=== PATIENT | male | born 1960 | race Caucasian/White ===

== ENCOUNTER 2021-11-29 00:06 | Inpatient (IN) | payer OTHER ==
[2021-11-29] VITALS (7 sets, daily range): BP systolic 101–116; BP diastolic 60–89
[~2021-11-29] VITALS: Ht 177.8 cm; Wt 81.8 kg
[2021-11-29] MEDS ORDERED: NITROGLYCERIN 50MG PREMIX 250 ML IV ONE (00:15)
[2021-11-29] MEDS ORDERED: FUROSEMIDE 100MG/10ML VIAL IVP ONE (00:15)
[2021-11-29] MEDS ORDERED: ASPIRIN 325MG EC TABLET PO ONE (00:15)
[2021-11-29] MEDS ORDERED: NITROGLYCERIN 50MG PREMIX 250 ML IV SCH (00:30)
[2021-11-29 00:35] LABS: BASOPHILS % 1.1 % (0.0-2.0); EOSINOPHILS % 3.7 % (0.0-5.0); HEMOGLOBIN. 14.2 g/dL (14.0-18.0); LYMPHOCYTES % 39.5 % (20.0-50.0); MEAN CORPUSCULAR HEMOGLOBIN 29.1 pg (28.0-32.0); MEAN CORPUSCULAR VOLUME 89.8 fL (80.0-94.0); MONOCYTES % 5.5 % (2.0-8.0); NEUTROPHILS % 50.2 % (40.0-76.0); PLATELET 380 x1000/uL (130-400); RED CELL DISTRIBUTION WIDTH 14.7 % (11.6-14.6)
[2021-11-29 00:42] LABS: CHLORIDE 109 mEq/L (98-107)
[2021-11-29] MEDS ORDERED: HEPARIN 5000 UNITS/ML VIAL IV SCH (00:45)
[2021-11-29] MEDS ORDERED: HEPARIN 25,000 UNITS PREMIX 250 ML IV PRN (00:45)
[2021-11-29] MEDS ORDERED: ONDANSETRON HCL 4MG/2ML INJ IV ONE (01:15)
[2021-11-29] MEDS ORDERED: HEPARIN 60 UNITS/KG BOLUS IV SCH (02:15)
[2021-11-29] MEDS ORDERED: HEPARIN BOLUS PRN aPTT <30 IV (02:15)
[2021-11-29 02:42] LABS: PARTIAL THROMBOPLASTIN TIME 28.4 sec (23.4-31.0)
[2021-11-29] MEDS: HEPARIN 25,000 UNITS PREMIX 250 ML IV SCH ×2 (03:04→15:04)
[2021-11-29 04:18] LABS: CLARITY URINE CLEAR (CLEAR); COLOR URINE YELLOW (YELLOW); KETONES URINE NEGATIVE (NEGATIVE); LEUKOCYTE ESTERASE URINE NEGATIVE (NEGATIVE); NITRITE URINE NEGATIVE (NEGATIVE); OCCULT BLOOD URINE NEGATIVE (NEGATIVE); PROTEIN URINE TRACE (NEGATIVE); UROBILINOGEN URINE 0.2 E.U./dL (0.2-1.0)
[2021-11-29] MEDS ORDERED: ACETAMINOPHEN 325MG TABLET PO PRN ×3 (06:45→07:30)
[2021-11-29] MEDS ORDERED: MAGNESIUM/ALUMINUM HYDROXIDE/SIMETHICONE 30ML UDC PO PRN (07:30)
[2021-11-29] MEDS ORDERED: GUAIFENESIN 200MG/10ML SUGAR FREE UDC PO PRN (07:30)
[2021-11-29] MEDS ORDERED: CLONIDINE 0.1MG TABLET PO PRN (07:30)
[2021-11-29] MEDS ORDERED: HYDROCODONE/ACETAMINOPHEN 5/325MG TABLET PO PRN (07:30)
[2021-11-29] MEDS ORDERED: ONDANSETRON HCL 4MG/2ML INJ IV PRN (07:30)
[2021-11-29] MEDS ORDERED: DEXTROSE 50% WATER 50ML SYRINGE IV PRN (07:45)
[2021-11-29] MEDS ORDERED: FUROSEMIDE 100MG/10ML VIAL IVP NR (09:00)
[2021-11-29] MEDS ORDERED: IPRATROPIUM/ALBUTEROL 0.5-3(2.5)MG/3ML NEB HHN PRN (09:15)
[2021-11-29] MEDS: INSULIN LISPRO 100 UNITS/ML SUBCUT SCH ×4 (09:30→21:00)
[2021-11-29] MEDS: BLOOD SUGAR DIAGNOSTIC STRIP TEST SCH ×4 (09:42→21:00)
[2021-11-29 09:55] LABS: BG BASE EXCESS -6.2 mmol/L (-2.0-2.0); BG CARBOXYHEMOGLOBIN 0.5 % (0.5-1.5); BG FRACTION INSPIRED OXYGEN 100; BG HCO3 ACT 19.7 mmol/L (22.0-26.0); BG METHEMOGLOBIN 0.2 % (0.0-1.5); BG OXYHEMOGLOBIN 95.3 % (94.0-97.0); BG PCO2 40.3 mmHg (35.0-45.0); BG PH 7.306 (7.350-7.450); BG PO2 90.9 mmHg (75.0-100.0); BG SAMPLE SITE LEFT RADIAL; BG TOTAL HEMOGLOBIN 14.8 g/dL (12.0-18.0); BG TOTAL RESPIRATORY RATE 39 b/min; BG VENT MODE MASK - BIPAP
[2021-11-29 11:51] LABS: HEMATOCRIT. 42.8 % (42.0-52.0); MEAN CORPUSCULAR HEMOGLOBIN 28.7 pg (28.0-32.0); MEAN CORPUSCULAR VOLUME 87.4 fL (80.0-94.0); MEAN PLATELET VOLUME 9.4 fl (7.4-10.4); PLATELET 324 x1000/uL (130-400); RED BLOOD CELL COUNT 4.89 mill/uL (4.7-6.1); RED CELL DISTRIBUTION WIDTH 14.5 % (11.6-14.6)
[2021-11-29 12:26] LABS: PHOSPHORUS 4.4 mg/dL (2.5-4.9)
[2021-11-29] MEDS: IPRATROPIUM/ALBUTEROL 0.5-3(2.5)MG/3ML NEB HHN SCH ×2 (14:02→21:09)
[2021-11-29 14:21] LABS: PLATELET ESTIMATE NORMAL
[2021-11-29] MEDS: HEPARIN BOLUS PRN aPTT 30-44 IV (14:37)
[2021-11-29] MEDS ORDERED: LISI10TA26 PO (15:21)
[2021-11-29] MEDS ORDERED: LABE100T5 PO (15:21)
[2021-11-29] MEDS ORDERED: GLIP5TAB12 PO (15:21)
[2021-11-29] MEDS ORDERED: AMLO10TA80 PO (15:21)
[2021-11-29] MEDS ORDERED: ATOR40TA70 PO (15:21)
[2021-11-29] MEDS: FUROSEMIDE 100MG/10ML VIAL IVP SCH (18:23)
[2021-11-29] MEDS: ATORVASTATIN CALCIUM 40MG TABLET PO SCH (21:34)
[2021-11-30] VITALS (13 sets, daily range): BP systolic 100–122; BP diastolic 54–74
[2021-11-30] MEDS: IPRATROPIUM/ALBUTEROL 0.5-3(2.5)MG/3ML NEB HHN SCH ×6 (00:54→19:49)
[2021-11-30 02:39] LABS: PHOSPHORUS 4.3 mg/dL (2.5-4.9)
[2021-11-30 02:42] LABS: BASOPHILS % 0.3 % (0.0-2.0); EOSINOPHILS % 0.2 % (0.0-5.0); HEMATOCRIT. 37.7 % (42.0-52.0); HEMOGLOBIN. 12.8 g/dL (14.0-18.0); LYMPHOCYTES % 9.4 % (20.0-50.0); MEAN CORPUSCULAR HEMOGLOBIN 29.2 pg (28.0-32.0); MONOCYTES % 4.2 % (2.0-8.0); NEUTROPHILS % 85.9 % (40.0-76.0); PLATELET 276 x1000/uL (130-400); RED BLOOD CELL COUNT 4.39 mill/uL (4.7-6.1); RED CELL DISTRIBUTION WIDTH 14.5 % (11.6-14.6)
[2021-11-30] MEDS: HEPARIN 25,000 UNITS PREMIX 250 ML IV SCH (04:05)
[2021-11-30] MEDS: FUROSEMIDE 100MG/10ML VIAL IVP SCH ×2 (05:19→18:00)
[2021-11-30] MEDS: BLOOD SUGAR DIAGNOSTIC STRIP TEST SCH ×4 (06:47→20:10)
[2021-11-30] MEDS: INSULIN LISPRO 100 UNITS/ML SUBCUT SCH ×4 (06:47→20:10)
[2021-11-30 07:55] LABS: BG BASE EXCESS -0.5 mmol/L (-2.0-2.0); BG CARBOXYHEMOGLOBIN 0.7 % (0.5-1.5); BG DEOXYHEMOGLOBIN 4.4 % (0.0-5.0); BG HCO3 ACT 24.1 mmol/L (22.0-26.0); BG METHEMOGLOBIN 0.1 % (0.0-1.5); BG OXYGEN SATURATION 95.6 % (92.0-98.5); BG OXYHEMOGLOBIN 94.8 % (94.0-97.0); BG PCO2 39.5 mmHg (35.0-45.0); BG PH 7.404 (7.350-7.450); BG PO2 81.1 mmHg (75.0-100.0); BG SAMPLE SITE LEFT RADIAL; BG TOTAL HEMOGLOBIN 13.2 g/dL (12.0-18.0); BG VENT MODE MASK - BIPAP
[2021-11-30] MEDS: ASPIRIN 81MG TABLET PO SCH (08:53)
[2021-11-30] MEDS ORDERED: NALOXONE HCL 0.4MG/ML VIAL IV PRN (18:30)
[2021-11-30] MEDS: ATORVASTATIN CALCIUM 40MG TABLET PO SCH (20:10)
[2021-11-30] MEDS: HEPARIN BOLUS PRN aPTT 30-44 IV (21:17)
[2021-12-01] VITALS (26 sets, daily range): BP systolic 98–128; BP diastolic 54–81
[2021-12-01] MEDS: IPRATROPIUM/ALBUTEROL 0.5-3(2.5)MG/3ML NEB HHN SCH ×6 (00:01→20:29)
[2021-12-01] MEDS: HEPARIN 25,000 UNITS PREMIX 250 ML IV SCH ×2 (02:12→17:00)
[2021-12-01 04:02] LABS: BASOPHILS % 0.5 % (0.0-2.0); EOSINOPHILS % 0.3 % (0.0-5.0); HEMATOCRIT. 36.9 % (42.0-52.0); HEMOGLOBIN. 12.6 g/dL (14.0-18.0); LYMPHOCYTES % 10.6 % (20.0-50.0); MEAN CORPUSCULAR HEMOGLOBIN 29.3 pg (28.0-32.0); MEAN CORPUSCULAR VOLUME 85.9 fL (80.0-94.0); MEAN PLATELET VOLUME 8.6 fl (7.4-10.4); MONOCYTES % 5.3 % (2.0-8.0); NEUTROPHILS % 83.3 % (40.0-76.0); PLATELET 277 x1000/uL (130-400); RED BLOOD CELL COUNT 4.29 mill/uL (4.7-6.1); RED CELL DISTRIBUTION WIDTH 14.3 % (11.6-14.6)
[2021-12-01] MEDS: FUROSEMIDE 100MG/10ML VIAL IVP SCH ×2 (04:55→20:49)
[2021-12-01] MEDS: HEPARIN BOLUS PRN aPTT 30-44 IV (04:55)
[2021-12-01] MEDS: BLOOD SUGAR DIAGNOSTIC STRIP TEST SCH ×4 (06:07→21:26)
[2021-12-01] MEDS: INSULIN LISPRO 100 UNITS/ML SUBCUT SCH ×4 (08:00→21:34)
[2021-12-01] MEDS: ASPIRIN 81MG TABLET PO SCH (09:00)
[2021-12-01] MEDS ORDERED: NICARDIPINE 100MCG/ML 10ML VIAL (CATH LAB) IV ONE (09:40)
[2021-12-01] MEDS ORDERED: NITROGLYCERIN 50MCG/ML 10ML VIAL (CATH LAB) IV ONE (09:40)
[2021-12-01] MEDS ORDERED: VERAPAMIL HCL 2.5 MG/1 ML 2ML VIAL IV ONE (10:48)
[2021-12-01] MEDS ORDERED: LIDOCAINE HCL/PF 2% 20MG/ML 5 ML/VIAL ONE (10:48)
[2021-12-01] MEDS ORDERED: IODIXANOL 320MG/ML 100 ML BOTTLE IV ONE (10:49)
[2021-12-01] MEDS ORDERED: DIPHENHYDRAMINE 50MG/ML VIAL ONE (10:49)
[2021-12-01] MEDS ORDERED: MIDAZOLAM HCL 2 MG/2 ML VIAL ONE (10:49)
[2021-12-01] MEDS ORDERED: FENTANYL CITRATE/PF 50MCG/ML 2ML VIAL ONE (10:49)
[2021-12-01] MEDS ORDERED: ATROPINE SULFATE 1MG/10ML SYR IV PRN (13:00)
[2021-12-01] MEDS ORDERED: ALPRAZOLAM 0.25 MG TABLET PO PRN (14:30)
[2021-12-01] MEDS ORDERED: ACETAMINOPHEN 325MG TABLET PO PRN ×2 (14:30)
[2021-12-01] MEDS ORDERED: NITROGLYCERIN 0.4MG TABLET SL SL PRN (14:30)
[2021-12-01 17:50] LABS: EOSINOPHILS % 0.7 % (0.0-5.0); HEMATOCRIT. 37.8 % (42.0-52.0); HEMOGLOBIN. 12.9 g/dL (14.0-18.0); LYMPHOCYTES % 10.9 % (20.0-50.0); MEAN CORPUSCULAR HEMOGLOBIN 29.9 pg (28.0-32.0); MEAN CORPUSCULAR VOLUME 87.5 fL (80.0-94.0); MEAN PLATELET VOLUME 8.6 fl (7.4-10.4); MONOCYTES % 6.3 % (2.0-8.0); NEUTROPHILS % 81.1 % (40.0-76.0); PLATELET 283 x1000/uL (130-400); RED BLOOD CELL COUNT 4.32 mill/uL (4.7-6.1); RED CELL DISTRIBUTION WIDTH 14.3 % (11.6-14.6)
[2021-12-01 18:49] LABS: CHLORIDE 101 mEq/L (98-107)
[2021-12-01 19:12] LABS: AMYLASE 54 IU/L (25-115); DIGOXIN 0.4 ng/mL (0.9-2.0)
[2021-12-01] MEDS: ATORVASTATIN CALCIUM 40MG TABLET PO SCH (20:34)
[2021-12-01] MEDS: ALLOPURINOL 300 MG TABLET PO SCH (20:34)
[2021-12-01] MEDS ORDERED: CHLORHEXIDINE GLUCONATE 4% EXTERNAL USE TOP SCH (21:00)
[2021-12-01] MEDS ORDERED: DIPHENHYDRAMINE 25MG CAPSULE PO PRN (21:00)
[2021-12-01] MEDS ORDERED: DOCUSATE SODIUM 100MG CAPSULE PO SCH (21:00)
[2021-12-01] MEDS ORDERED: ASCORBIC ACID 500 MG TABLET PO SCH (21:00)
[2021-12-01] MEDS ORDERED: BISACODYL 10MG SUPP PR PRN (21:00)
[2021-12-01] MEDS: SODIUM CHLORIDE 0.9% INJ 3ML FLUSH IVF SCH (21:46)
[2021-12-01 21:49] LABS: CLARITY URINE CLEAR (CLEAR); COLOR URINE YELLOW (YELLOW); KETONES URINE TRACE (NEGATIVE); LEUKOCYTE ESTERASE URINE NEGATIVE (NEGATIVE); NITRITE URINE NEGATIVE (NEGATIVE); OCCULT BLOOD URINE NEGATIVE (NEGATIVE); PH URINE 5.5 (4.5-8.0); PROTEIN URINE 2+ (NEGATIVE); SPECIFIC GRAVITY URINE 1.027 (1.005-1.030)
[2021-12-01] MEDS: ACETYLCYSTEINE 200MG/ML 20% VIAL 4ML PO SCH (23:27)
[2021-12-02] VITALS (49 sets, daily range): BP systolic 82–138; BP diastolic 35–90
[2021-12-02] MEDS: IPRATROPIUM/ALBUTEROL 0.5-3(2.5)MG/3ML NEB HHN SCH ×6 (00:13→20:38)
[2021-12-02] MEDS: ALLOPURINOL 300 MG TABLET PO SCH (05:30)
[2021-12-02 05:33] LABS: BASOPHILS % 0.6 % (0.0-2.0); EOSINOPHILS % 0.9 % (0.0-5.0); HEMATOCRIT. 37.5 % (42.0-52.0); HEMOGLOBIN. 12.9 g/dL (14.0-18.0); LYMPHOCYTES % 14.8 % (20.0-50.0); MEAN CORPUSCULAR HEMOGLOBIN 29.7 pg (28.0-32.0); MEAN PLATELET VOLUME 8.6 fl (7.4-10.4); MONOCYTES % 6.6 % (2.0-8.0); NEUTROPHILS % 77.1 % (40.0-76.0); PLATELET 283 x1000/uL (130-400); RED BLOOD CELL COUNT 4.36 mill/uL (4.7-6.1); RED CELL DISTRIBUTION WIDTH 13.8 % (11.6-14.6)
[2021-12-02] MEDS: SODIUM CHLORIDE 0.9% INJ 3ML FLUSH IVF SCH ×3 (06:10→21:39)
[2021-12-02] MEDS: FUROSEMIDE 100MG/10ML VIAL IVP SCH ×2 (06:17→18:19)
[2021-12-02] MEDS: BLOOD SUGAR DIAGNOSTIC STRIP TEST SCH ×4 (06:58→21:39)
[2021-12-02] MEDS: INSULIN LISPRO 100 UNITS/ML SUBCUT SCH ×4 (07:01→21:42)
[2021-12-02] MEDS: ASPIRIN 81MG TABLET PO SCH (08:34)
[2021-12-02] MEDS: KCL 20MEQ/100ML PREMIX 100 ML IV SCH ×2 (08:34→10:59)
[2021-12-02] MEDS: HEPARIN 25,000 UNITS in DEXT 5% WATER 250 ML IV SCH (08:37)
[2021-12-02] MEDS ORDERED: CHLORHEXIDINE GLUCONATE 4% EXTERNAL USE TOP SCH (09:00)
[2021-12-02] MEDS: ACETYLCYSTEINE 200MG/ML 20% VIAL 4ML PO SCH (09:14)
[2021-12-02 09:45] LABS: BG BASE EXCESS 5.1 mmol/L (-2.0-2.0); BG CARBOXYHEMOGLOBIN 0.2 % (0.5-1.5); BG DEOXYHEMOGLOBIN 6.1 % (0.0-5.0); BG HCO3 ACT 30.4 mmol/L (22.0-26.0); BG METHEMOGLOBIN 0.3 % (0.0-1.5); BG OXYGEN SATURATION 93.9 % (92.0-98.5); BG OXYHEMOGLOBIN 93.4 % (94.0-97.0); BG PH 7.428 (7.350-7.450); BG PO2 71.1 mmHg (75.0-100.0); BG SAMPLE SITE RIGHT RADIAL; BG TOTAL HEMOGLOBIN 14.1 g/dL (12.0-18.0); BG VENT MODE NASAL CANNULA
[2021-12-02] MEDS: THROAT LOZENGES-BENZOCAINE/MENTH/CETYLPYRD CL LOZENGES MM PRN (18:58)
[2021-12-02] MEDS: ATORVASTATIN CALCIUM 40MG TABLET PO SCH (21:40)
[2021-12-03] VITALS (48 sets, daily range): BP systolic 92–153; BP diastolic 48–100
[2021-12-03] MEDS: IPRATROPIUM/ALBUTEROL 0.5-3(2.5)MG/3ML NEB HHN SCH ×6 (00:16→20:26)
[2021-12-03] MEDS: HEPARIN 25,000 UNITS in DEXT 5% WATER 250 ML IV SCH ×2 (02:36→19:18)
[2021-12-03 05:50] LABS: EOSINOPHILS % 3.6 % (0.0-5.0); HEMATOCRIT. 39.2 % (42.0-52.0); HEMOGLOBIN. 13.4 g/dL (14.0-18.0); LYMPHOCYTES % 11.5 % (20.0-50.0); MEAN CORPUSCULAR HEMOGLOBIN 29.7 pg (28.0-32.0); MEAN CORPUSCULAR VOLUME 86.4 fL (80.0-94.0); MEAN PLATELET VOLUME 8.3 fl (7.4-10.4); MONOCYTES % 8.2 % (2.0-8.0); NEUTROPHILS % 75.7 % (40.0-76.0); PLATELET 325 x1000/uL (130-400); RED BLOOD CELL COUNT 4.53 mill/uL (4.7-6.1); RED CELL DISTRIBUTION WIDTH 13.9 % (11.6-14.6)
[2021-12-03] MEDS: FUROSEMIDE 100MG/10ML VIAL IVP SCH ×2 (06:05→17:53)
[2021-12-03] MEDS: SODIUM CHLORIDE 0.9% INJ 3ML FLUSH IVF SCH ×3 (06:05→22:06)
[2021-12-03 06:07] LABS: PHOSPHORUS 4.7 mg/dL (2.5-4.9)
[2021-12-03] MEDS: BLOOD SUGAR DIAGNOSTIC STRIP TEST SCH ×4 (07:50→21:00)
[2021-12-03] MEDS: ACETYLCYSTEINE 200MG/ML 20% VIAL 4ML PO SCH ×2 (08:10→20:26)
[2021-12-03] MEDS: ASPIRIN 81MG TABLET PO SCH (08:10)
[2021-12-03] MEDS: INSULIN LISPRO 100 UNITS/ML SUBCUT SCH ×4 (08:11→22:24)
[2021-12-03 11:55] LABS: CREATINE KINASE 154 IU/L (39-308)
[2021-12-03 16:56] LABS: CLARITY URINE CLEAR (CLEAR); COLOR URINE YELLOW (YELLOW); KETONES URINE NEGATIVE (NEGATIVE); LEUKOCYTE ESTERASE URINE NEGATIVE (NEGATIVE); NITRITE URINE NEGATIVE (NEGATIVE); OCCULT BLOOD URINE NEGATIVE (NEGATIVE); PROTEIN URINE TRACE (NEGATIVE); SPECIFIC GRAVITY URINE 1.013 (1.005-1.030); UROBILINOGEN URINE 0.2 E.U./dL (0.2-1.0)
[2021-12-03] MEDS ORDERED: ASCORBIC ACID 500 MG TABLET PO SCH ×2 (21:00→23:03)
[2021-12-03] MEDS ORDERED: CHLORHEXIDINE GLUCONATE 4% EXTERNAL USE TOP SCH (21:00)
[2021-12-03] MEDS: ALLOPURINOL 300 MG TABLET PO SCH (22:21)
[2021-12-03] MEDS: ATORVASTATIN CALCIUM 40MG TABLET PO SCH (22:21)
[2021-12-03] MEDS: THROAT LOZENGES-BENZOCAINE/MENTH/CETYLPYRD CL LOZENGES MM PRN (22:22)
[2021-12-04] VITALS (77 sets, daily range): BP systolic 79–193; BP diastolic 29–103
[2021-12-04] MEDS: IPRATROPIUM/ALBUTEROL 0.5-3(2.5)MG/3ML NEB HHN SCH ×6 (00:29→20:40)
[2021-12-04] MEDS ORDERED: CHLORHEXIDINE GLUCONATE 4% EXTERNAL USE TOP SCH (04:00)
[2021-12-04] MEDS: SODIUM CHLORIDE 0.9% INJ 3ML FLUSH IVF SCH ×3 (06:02→22:24)
[2021-12-04] MEDS: ALLOPURINOL 300 MG TABLET PO SCH (06:03)
[2021-12-04] MEDS: FUROSEMIDE 100MG/10ML VIAL IVP SCH ×2 (06:03→18:11)
[2021-12-04 06:31] LABS: BASOPHILS % 1.2 % (0.0-2.0); EOSINOPHILS % 5.2 % (0.0-5.0); HEMATOCRIT. 40.3 % (42.0-52.0); HEMOGLOBIN. 14.2 g/dL (14.0-18.0); LYMPHOCYTES % 21.1 % (20.0-50.0); MEAN CORPUSCULAR VOLUME 85.4 fL (80.0-94.0); MEAN PLATELET VOLUME 8.4 fl (7.4-10.4); NEUTROPHILS % 62.5 % (40.0-76.0); PLATELET 339 x1000/uL (130-400); RED BLOOD CELL COUNT 4.71 mill/uL (4.7-6.1); RED CELL DISTRIBUTION WIDTH 13.8 % (11.6-14.6)
[2021-12-04 06:37] LABS: PARTIAL THROMBOPLASTIN TIME 56.8 sec (23.4-31.0); PROTHROMBIN TIME 10.9 sec (9.6-11.0)
[2021-12-04 07:11] LABS: CHLORIDE 96 mEq/L (98-107)
[2021-12-04] MEDS: BLOOD SUGAR DIAGNOSTIC STRIP TEST SCH ×4 (07:27→21:00)
[2021-12-04] MEDS: INSULIN LISPRO 100 UNITS/ML SUBCUT SCH ×4 (07:28→21:00)
[2021-12-04] MEDS ORDERED: PAPAVERINE HCL 180MG in SODIUM CHLORIDE 0.9% 24ML IV NR ×2 (08:00→22:45)
[2021-12-04] MEDS ORDERED: DOBUTAMINE 250 MG in DEXT 5% WATER 230 ML IV NR (08:00)
[2021-12-04] MEDS ORDERED: CEFAZOLIN 2,000 MG in DEXT 5% WATER 100 ML IV NR ×2 (08:00→22:45)
[2021-12-04] MEDS ORDERED: DEL NIDO ELECTROLYTE-S(PH 7.4) 1,000 ML IV NR ×4 (08:00→22:45)
[2021-12-04] MEDS ORDERED: EPINEPHRINE 5 MG in DEXT 5% WATER 245 ML IV NR ×2 (08:00→22:45)
[2021-12-04] MEDS ORDERED: NOREPINEPHRINE 8 MG in DEXT 5% WATER 242 ML IV NR ×2 (08:00→22:45)
[2021-12-04] MEDS ORDERED: INSULIN REGULAR (DRIP) 100 UNITS in SODIUM CHLORIDE 0.9% 99 ML IV NR (08:00)
[2021-12-04] MEDS ORDERED: DOPAMINE 400MG/250ML PREMIX 250 ML IV ONE (09:17)
[2021-12-04] MEDS ORDERED: POLYMYXIN B SULFATE 500000 UNITS/VIAL ONE (10:07)
[2021-12-04] MEDS ORDERED: SKIN ADHESIVE 0.7 GM EA TOP ONE (10:08)
[2021-12-04] MEDS ORDERED: HEPARIN SODIUM 1,000 UNIT/1ML VIAL IV ONE (10:08)
[2021-12-04] MEDS ORDERED: HEPARIN 10,000 UNITS/ML VIAL ONE (10:11)
[2021-12-04] MEDS ORDERED: THROMBIN (BOVINE) 5000 UNITS/VIAL TOP ONE (10:12)
[2021-12-04] MEDS: ASPIRIN 81MG TABLET PO SCH (10:15)
[2021-12-04] MEDS ORDERED: NICARDIPINE 40MG/200ML PREMIX 200 ML IV ONE (10:16)
[2021-12-04] MEDS ORDERED: ROCURONIUM BROMIDE 10MG/ML VIAL 5ML IV ONE (14:50)
[2021-12-04] MEDS ORDERED: FENTANYL CITRATE/PF 50MCG/ML 2ML VIAL ONE (14:51)
[2021-12-04] MEDS ORDERED: NEOSTIGMINE METHYLSULFATE 1MG/ML 10 ML VIAL ONE (16:02)
[2021-12-04] MEDS ORDERED: GLYCOPYRROLATE 0.2 MG/ML 2ML VIAL ONE ×3 (16:02)
[2021-12-04] MEDS ORDERED: CEFAZOLIN SODIUM 1000MG/VIAL ONE (16:12)
[2021-12-04] MEDS ORDERED: DEXAMETHASONE 4MG/ML 1ML VIAL ONE (16:12)
[2021-12-04] MEDS ORDERED: CALCIUM CHLORIDE 1GM/10ML SYR IV ONE (16:12)
[2021-12-04] MEDS ORDERED: HEPARIN 25,000 UNITS PREMIX 250 ML IV SCH (17:15)
[2021-12-04] MEDS ORDERED: HEPARIN 25,000 UNITS in DEXT 5% WATER 250 ML IV SCH (17:30)
[2021-12-04] MEDS: HEPARIN BOLUS PRN aPTT 30-44 IV (18:23)
[2021-12-04] MEDS: ACETYLCYSTEINE 200MG/ML 20% VIAL 4ML PO SCH (20:40)
[2021-12-04] MEDS ORDERED: ASCORBIC ACID 500 MG TABLET PO SCH ×2 (21:00→22:45)
[2021-12-04] MEDS: CHLORHEXIDINE GLUCONATE 4% EXTERNAL USE TOP SCH (22:00)
[2021-12-04] MEDS: ATORVASTATIN CALCIUM 40MG TABLET PO SCH (22:24)
[2021-12-05] VITALS (114 sets, daily range): BP systolic 78–147; BP diastolic 33–85
[2021-12-05] MEDS: IPRATROPIUM/ALBUTEROL 0.5-3(2.5)MG/3ML NEB HHN SCH ×6 (00:55→21:02)
[2021-12-05] MEDS ORDERED: CHLORHEXIDINE GLUCONATE 4% EXTERNAL USE TOP SCH (04:00)
[2021-12-05] MEDS: SODIUM CHLORIDE 0.9% INJ 3ML FLUSH IVF SCH ×3 (06:01→22:00)
[2021-12-05] MEDS: CHLORHEXIDINE GLUCONATE 4% EXTERNAL USE TOP SCH ×2 (06:01)
[2021-12-05] MEDS: FUROSEMIDE 100MG/10ML VIAL IVP SCH ×2 (06:01→18:00)
[2021-12-05] MEDS ORDERED: POLYMYXIN B SULFATE 500000 UNITS/VIAL ONE (06:17)
[2021-12-05] MEDS ORDERED: THROMBIN (BOVINE) 5000 UNITS/VIAL TOP ONE (06:17)
[2021-12-05] MEDS ORDERED: SKIN ADHESIVE 0.7 GM EA TOP ONE (06:18)
[2021-12-05 06:29] LABS: HEMATOCRIT. 44.1 % (42.0-52.0); MEAN CORPUSCULAR HEMOGLOBIN 29.3 pg (28.0-32.0); MEAN PLATELET VOLUME 8.5 fl (7.4-10.4); PLATELET 421 x1000/uL (130-400); RED BLOOD CELL COUNT 5.13 mill/uL (4.7-6.1); RED CELL DISTRIBUTION WIDTH 13.7 % (11.6-14.6)
[2021-12-05] MEDS ORDERED: HEPARIN 1000 UNITS/ML 10ML ONE (06:40)
[2021-12-05 06:47] LABS: PHOSPHORUS 6.3 mg/dL (2.5-4.9)
[2021-12-05 07:09] LABS: *CREATININE RANDOM URINE 76.2 mg/dL (Not Estab.); MICROALBUMIN RANDOM URINE 115.9 ug/mL (Not Estab.)
[2021-12-05] MEDS ORDERED: FENTANYL CITRATE/PF 50MCG/ML 2ML VIAL ONE ×2 (07:28→11:09)
[2021-12-05] MEDS ORDERED: ROCURONIUM BROMIDE 10MG/ML VIAL 5ML IV ONE ×2 (07:28→08:52)
[2021-12-05] MEDS ORDERED: KCL 10MEQ/50ML PREMIX 200 ML IV PRN (07:45)
[2021-12-05] MEDS ORDERED: KCL 10MEQ/50ML PREMIX 150 ML IV PRN (07:45)
[2021-12-05] MEDS ORDERED: KCL 10MEQ/50ML PREMIX 100 ML IV PRN (07:45)
[2021-12-05] MEDS: BLOOD SUGAR DIAGNOSTIC STRIP TEST SCH ×14 (07:50→23:00)
[2021-12-05] MEDS ORDERED: MAGNESIUM 2 G PREMIX 50 ML IV PRN ×2 (08:00→11:30)
[2021-12-05] MEDS ORDERED: MAGNESIUM SULFATE 3 GM in DEXT 5% WATER 100 ML IV PRN ×2 (08:00→11:30)
[2021-12-05] MEDS ORDERED: MAGNESIUM 1 G PREMIX 100 ML IV PRN ×2 (08:00→11:30)
[2021-12-05] MEDS: INSULIN LISPRO 100 UNITS/ML SUBCUT SCH (08:04)
[2021-12-05] MEDS ORDERED: DEXAMETHASONE 4MG/ML 1ML VIAL ONE ×2 (08:42)
[2021-12-05] MEDS ORDERED: CEFAZOLIN SODIUM 1000MG/VIAL ONE ×2 (08:42)
[2021-12-05] MEDS ORDERED: FUROSEMIDE 100MG/10ML VIAL ONE (08:42)
[2021-12-05] MEDS ORDERED: CALCIUM CHLORIDE 1GM/10ML SYR IV ONE ×3 (08:42→12:31)
[2021-12-05 08:53] LABS: PLATELET ESTIMATE INCREASED
[2021-12-05] MEDS ORDERED: ALBUTEROL 6.7GM HFA INHALER ONE (08:57)
[2021-12-05] MEDS: ASPIRIN 81MG TABLET PO SCH ×2 (09:00→21:41)
[2021-12-05] MEDS ORDERED: SODIUM BICARBONATE 8.4% 1 MEQ/ML 50ML SYR IV ONE ×3 (09:47→11:08)
[2021-12-05] MEDS ORDERED: PROTAMINE SULFATE 10MG/ML VIAL 25ML IV ONE (10:29)
[2021-12-05] MEDS ORDERED: AMIODARONE HCL 50MG/ML 3ML VIAL IV ONE (10:29)
[2021-12-05] MEDS ORDERED: NEOSTIGMINE METHYLSULFATE 1MG/ML 10 ML VIAL ONE (10:33)
[2021-12-05] MEDS ORDERED: GLYCOPYRROLATE 0.2 MG/ML 2ML VIAL ONE ×2 (10:33→10:36)
[2021-12-05] MEDS ORDERED: DEXMEDETOMIDINE 400 MCG/100 ML 100 ML IV ONE (10:39)
[2021-12-05] MEDS ORDERED: AMIODARONE HCL 900 MG in DEXT 5% WATER 500 ML IV PRN (10:45)
[2021-12-05] MEDS: INSULIN REGULAR 100U/100ML PMX 100 ML IV SCH ×2 (11:27→13:18)
[2021-12-05] MEDS ORDERED: ACETAMINOPHEN 325MG TABLET PO PRN (11:30)
[2021-12-05] MEDS ORDERED: ACETAMINOPHEN 650MG SUPP PR PRN (11:30)
[2021-12-05] MEDS ORDERED: DOPAMINE 400MG/250ML PREMIX 250 ML IV SCH (11:30)
[2021-12-05] MEDS ORDERED: ALBUMIN HUMAN 12.5G/250ML (5%) IV PRN (11:30)
[2021-12-05] MEDS ORDERED: SODIUM CHLORIDE 0.9% 500 ML IV PRN (11:30)
[2021-12-05] MEDS ORDERED: CALCIUM CHLORIDE 3,000 MG in DEXT 5% WATER 250 ML IV PRN (11:30)
[2021-12-05] MEDS ORDERED: EPINEPHRINE 5 MG in DEXT 5% WATER 245 ML IV SCH (11:30)
[2021-12-05] MEDS ORDERED: ALBUMIN HUMAN 25GM/100ML (25%) IV PRN (11:30)
[2021-12-05 11:38] LABS: BG BASE EXCESS 1.1 mmol/L (-2.0-2.0); BG CARBOXYHEMOGLOBIN 0.3 % (0.5-1.5); BG DEOXYHEMOGLOBIN 8.8 % (0.0-5.0); BG HCO3 ACT 27.4 mmol/L (22.0-26.0); BG METHEMOGLOBIN 0.3 % (0.0-1.5); BG OXYGEN SATURATION 91.1 % (92.0-98.5); BG OXYHEMOGLOBIN 90.6 % (94.0-97.0); BG PCO2 50.6 mmHg (35.0-45.0); BG PH 7.352 (7.350-7.450); BG PO2 68.6 mmHg (75.0-100.0); BG SAMPLE SITE ALINE; BG TOTAL HEMOGLOBIN 12.7 g/dL (12.0-18.0); BG VENT MODE MASK - NRB
[2021-12-05 11:44] LABS: HEMATOCRIT. 35.4 % (42.0-52.0); HEMOGLOBIN. 12.1 g/dL (14.0-18.0); MEAN CORPUSCULAR HEMOGLOBIN 29.1 pg (28.0-32.0); MEAN CORPUSCULAR VOLUME 85.4 fL (80.0-94.0); MEAN PLATELET VOLUME 8.1 fl (7.4-10.4); PLATELET 316 x1000/uL (130-400); RED BLOOD CELL COUNT 4.14 mill/uL (4.7-6.1); RED CELL DISTRIBUTION WIDTH 13.8 % (11.6-14.6)
[2021-12-05] MEDS: MAGNESIUM HYDROXIDE 400MG/5ML 30ML UDC PO SCH ×3 (12:00→20:12)
[2021-12-05] MEDS ORDERED: POTASSIUM CHLORIDE 40MEQ/20ML INJ IV ONE (12:31)
[2021-12-05] MEDS ORDERED: ALBUMIN HUMAN 25GM/100ML (25%) IV ONE (12:31)
[2021-12-05] MEDS ORDERED: MAGNESIUM SULFATE 5GM/10ML VIAL IV ONE (12:31)
[2021-12-05] MEDS ORDERED: HEPARIN 10,000 UNITS/ML VIAL ONE (12:31)
[2021-12-05] MEDS ORDERED: INSULIN REGULAR (DRIP) 100 UNITS in SODIUM CHLORIDE 0.9% 100 ML IV SCH (12:45)
[2021-12-05] MEDS ORDERED: ACETAMINOPHEN WITH CODEINE 300/30MG TABLET PO PRN (13:00)
[2021-12-05] MEDS: OXYCODONE HCL/ACETAMINOPHEN 5/325MG TABLET PO PRN ×3 (13:08→17:33)
[2021-12-05 13:48] LABS: PLATELET ESTIMATE NORMAL
[2021-12-05] MEDS: CEFAZOLIN 1000MG PREMIX 50 ML IV SCH ×2 (14:17→21:41)
[2021-12-05 15:33] LABS: CLARITY URINE CLEAR (CLEAR); COLOR URINE YELLOW (YELLOW); KETONES URINE NEGATIVE (NEGATIVE); LEUKOCYTE ESTERASE URINE TRACE (NEGATIVE); NITRITE URINE NEGATIVE (NEGATIVE); OCCULT BLOOD URINE NEGATIVE (NEGATIVE); PROTEIN URINE NEGATIVE (NEGATIVE); SPECIFIC GRAVITY URINE 1.015 (1.005-1.030)
[2021-12-05] MEDS: ONDANSETRON HCL 4MG/2ML INJ IV PRN ×2 (15:53→22:31)
[2021-12-05] MEDS: BACITRACIN 15GM TUBE TOP SCH (16:28)
[2021-12-05] MEDS ORDERED: MORPHINE SULFATE 2 MG/ML CPJ (NOT FOR IM USE) IV NR (16:30)
[2021-12-05 17:15] LABS: HEMATOCRIT. 35.1 % (42.0-52.0); MEAN CORPUSCULAR HEMOGLOBIN 29.2 pg (28.0-32.0); MEAN CORPUSCULAR VOLUME 85.7 fL (80.0-94.0); MEAN PLATELET VOLUME 8.4 fl (7.4-10.4); PLATELET 345 x1000/uL (130-400); RED CELL DISTRIBUTION WIDTH 14.1 % (11.6-14.6)
[2021-12-05 17:22] LABS: CHLORIDE 99 mEq/L (98-107)
[2021-12-05] MEDS: DOCUSATE SODIUM 100MG CAPSULE PO SCH (17:26)
[2021-12-05 18:01] LABS: PLATELET ESTIMATE NORMAL
[2021-12-05] MEDS ORDERED: DEXT 5%/0.45% NACL 1000ML 1,000 ML IV SCH (19:00)
[2021-12-05] MEDS ORDERED: NALOXONE HCL 0.4MG/ML VIAL IV PRN (21:00)
[2021-12-05] MEDS ORDERED: FUROSEMIDE 40MG TABLET PO SCH (21:30)
[2021-12-05] MEDS: ATORVASTATIN CALCIUM 40MG TABLET PO SCH (21:41)
[2021-12-05] MEDS: CLOPIDOGREL 75MG TABLET PO SCH (21:41)
[2021-12-05] MEDS: FUROSEMIDE 40MG/4ML VIAL IVP SCH (21:52)
[2021-12-06] VITALS (95 sets, daily range): BP systolic 83–138; BP diastolic 40–88
[2021-12-06 00:16] LABS: HEMATOCRIT. 35.1 % (42.0-52.0); HEMOGLOBIN. 11.9 g/dL (14.0-18.0); MEAN CORPUSCULAR HEMOGLOBIN 29.2 pg (28.0-32.0); MEAN PLATELET VOLUME 8.3 fl (7.4-10.4); PLATELET 338 x1000/uL (130-400); RED BLOOD CELL COUNT 4.08 mill/uL (4.7-6.1); RED CELL DISTRIBUTION WIDTH 13.7 % (11.6-14.6)
[2021-12-06] MEDS: MAGNESIUM HYDROXIDE 400MG/5ML 30ML UDC PO SCH ×6 (00:19→20:00)
[2021-12-06 00:30] LABS: PHOSPHORUS 5.1 mg/dL (2.5-4.9)
[2021-12-06] MEDS: OXYCODONE HCL/ACETAMINOPHEN 5/325MG TABLET PO PRN ×2 (00:50→15:52)
[2021-12-06] MEDS: BLOOD SUGAR DIAGNOSTIC STRIP TEST SCH ×11 (00:58→21:24)
[2021-12-06] MEDS: IPRATROPIUM/ALBUTEROL 0.5-3(2.5)MG/3ML NEB HHN SCH ×6 (01:02→21:20)
[2021-12-06] MEDS: INSULIN REGULAR 100U/100ML PMX 100 ML IV SCH (04:10)
[2021-12-06 05:10] LABS: PLATELET ESTIMATE NORMAL
[2021-12-06] MEDS: SODIUM CHLORIDE 0.9% INJ 3ML FLUSH IVF SCH (05:33)
[2021-12-06] MEDS: CEFAZOLIN 1000MG PREMIX 50 ML IV SCH ×2 (05:37→14:02)
[2021-12-06] MEDS: ONDANSETRON HCL 4MG/2ML INJ IV PRN (06:20)
[2021-12-06] MEDS: MORPHINE SULFATE 2 MG/ML CPJ (NOT FOR IM USE) IV PRN ×2 (07:53→20:39)
[2021-12-06] MEDS: BACITRACIN 15GM TUBE TOP SCH ×2 (09:00→16:38)
[2021-12-06 09:32] LABS: HEMATOCRIT. 37.1 % (42.0-52.0); HEMOGLOBIN. 12.5 g/dL (14.0-18.0); MEAN CORPUSCULAR HEMOGLOBIN 29.5 pg (28.0-32.0); MEAN CORPUSCULAR VOLUME 87.6 fL (80.0-94.0); MEAN PLATELET VOLUME 8.5 fl (7.4-10.4); PLATELET 396 x1000/uL (130-400); RED BLOOD CELL COUNT 4.24 mill/uL (4.7-6.1); RED CELL DISTRIBUTION WIDTH 14.1 % (11.6-14.6)
[2021-12-06] MEDS: DOCUSATE SODIUM 100MG CAPSULE PO SCH ×2 (09:36→16:38)
[2021-12-06] MEDS: CLOPIDOGREL 75MG TABLET PO SCH (09:36)
[2021-12-06] MEDS: ASPIRIN 81MG TABLET PO SCH (09:37)
[2021-12-06] MEDS: FUROSEMIDE 40MG/4ML VIAL IVP SCH (09:37)
[2021-12-06 09:47] LABS: PHOSPHORUS 5.4 mg/dL (2.5-4.9)
[2021-12-06 10:05] LABS: PLATELET ESTIMATE NORMAL
[2021-12-06] MEDS ORDERED: FUROSEMIDE 40MG/4ML VIAL IVP NR (11:45)
[2021-12-06] MEDS ORDERED: BLOOD SUGAR DIAGNOSTIC STRIP TEST SCH (12:50)
[2021-12-06] MEDS: INSULIN LISPRO 100 UNITS/ML SUBCUT SCH ×3 (12:54→21:24)
[2021-12-07] VITALS (67 sets, daily range): BP systolic 31–123; BP diastolic 23–77
[2021-12-07] MEDS: MAGNESIUM HYDROXIDE 400MG/5ML 30ML UDC PO SCH
[2021-12-07] MEDS: ATORVASTATIN CALCIUM 40MG TABLET PO SCH ×2 (00:04→21:05)
[2021-12-07] MEDS: IPRATROPIUM/ALBUTEROL 0.5-3(2.5)MG/3ML NEB HHN SCH ×6 (01:42→21:15)
[2021-12-07] MEDS: MORPHINE SULFATE 2 MG/ML CPJ (NOT FOR IM USE) IV PRN (03:39)
[2021-12-07 06:08] LABS: BASOPHILS % 0.4 % (0.0-2.0); EOSINOPHILS % 0.3 % (0.0-5.0); HEMATOCRIT. 35.2 % (42.0-52.0); HEMOGLOBIN. 11.8 g/dL (14.0-18.0); LYMPHOCYTES % 10.1 % (20.0-50.0); MEAN CORPUSCULAR HEMOGLOBIN 29.4 pg (28.0-32.0); MEAN CORPUSCULAR VOLUME 87.7 fL (80.0-94.0); MEAN PLATELET VOLUME 8.5 fl (7.4-10.4); MONOCYTES % 8.2 % (2.0-8.0); PLATELET 368 x1000/uL (130-400); RED BLOOD CELL COUNT 4.01 mill/uL (4.7-6.1); RED CELL DISTRIBUTION WIDTH 14.3 % (11.6-14.6)
[2021-12-07] MEDS: OXYCODONE HCL/ACETAMINOPHEN 5/325MG TABLET PO PRN ×2 (06:09→18:32)
[2021-12-07 06:33] LABS: PHOSPHORUS 3.2 mg/dL (2.5-4.9)
[2021-12-07] MEDS: BLOOD SUGAR DIAGNOSTIC STRIP TEST SCH ×3 (07:50→21:06)
[2021-12-07] MEDS: BACITRACIN 15GM TUBE TOP SCH ×2 (09:00→18:31)
[2021-12-07] MEDS: CLOPIDOGREL 75MG TABLET PO SCH (09:45)
[2021-12-07] MEDS: ASPIRIN 81MG TABLET PO SCH (09:45)
[2021-12-07] MEDS: DOCUSATE SODIUM 100MG CAPSULE PO SCH ×2 (09:45→17:00)
[2021-12-07] MEDS: FUROSEMIDE 40MG/4ML VIAL IVP SCH (09:45)
[2021-12-07] MEDS: INSULIN LISPRO 100 UNITS/ML SUBCUT SCH ×4 (09:46→21:05)
[2021-12-08] VITALS (13 sets, daily range): BP systolic 89–123; BP diastolic 47–77
[2021-12-08] MEDS: IPRATROPIUM/ALBUTEROL 0.5-3(2.5)MG/3ML NEB HHN SCH ×6 (01:18→20:19)
[2021-12-08 05:45] LABS: BASOPHILS % 0.3 % (0.0-2.0); EOSINOPHILS % 1.8 % (0.0-5.0); HEMATOCRIT. 32.8 % (42.0-52.0); HEMOGLOBIN. 11.2 g/dL (14.0-18.0); LYMPHOCYTES % 8.9 % (20.0-50.0); MEAN CORPUSCULAR HEMOGLOBIN 29.4 pg (28.0-32.0); MEAN CORPUSCULAR VOLUME 85.8 fL (80.0-94.0); MEAN PLATELET VOLUME 8.3 fl (7.4-10.4); MONOCYTES % 7.7 % (2.0-8.0); NEUTROPHILS % 81.3 % (40.0-76.0); PLATELET 310 x1000/uL (130-400); RED BLOOD CELL COUNT 3.82 mill/uL (4.7-6.1); RED CELL DISTRIBUTION WIDTH 13.9 % (11.6-14.6)
[2021-12-08 07:09] LABS: PHOSPHORUS 2.7 mg/dL (2.5-4.9)
[2021-12-08] MEDS: BLOOD SUGAR DIAGNOSTIC STRIP TEST SCH ×4 (07:17→21:00)
[2021-12-08] MEDS: DOCUSATE SODIUM 100MG CAPSULE PO SCH ×2 (08:48→17:00)
[2021-12-08] MEDS: CLOPIDOGREL 75MG TABLET PO SCH (08:48)
[2021-12-08] MEDS: FUROSEMIDE 40MG/4ML VIAL IVP SCH (08:48)
[2021-12-08] MEDS: ASPIRIN 81MG TABLET PO SCH (08:48)
[2021-12-08] MEDS: BACITRACIN 15GM TUBE TOP SCH ×2 (08:49→17:51)
[2021-12-08] MEDS: INSULIN LISPRO 100 UNITS/ML SUBCUT SCH ×4 (08:49→22:00)
[2021-12-08] MEDS ORDERED: CLOP75TA15 PO ×2 (11:18)
[2021-12-08] MEDS ORDERED: NITR0.4T49 SL ×2 (11:18)
[2021-12-08] MEDS ORDERED: FURO-151 PO ×2 (11:18)
[2021-12-08] MEDS ORDERED: ASPI-864 PO ×2 (11:18)
[2021-12-08] MEDS ORDERED: ATOR40TA70 PO ×2 (11:18)
[2021-12-08] MEDS ORDERED: FUROSEMIDE 40MG/4ML VIAL IVP NR (13:30)
[2021-12-08 14:58] LABS: BG BASE EXCESS 2.5 mmol/L (-2.0-2.0); BG CARBOXYHEMOGLOBIN 0.2 % (0.5-1.5); BG DEOXYHEMOGLOBIN 6.8 % (0.0-5.0); BG FRACTION INSPIRED OXYGEN 21; BG METHEMOGLOBIN 0.3 % (0.0-1.5); BG OXYGEN SATURATION 93.2 % (92.0-98.5); BG OXYHEMOGLOBIN 92.7 % (94.0-97.0); BG PCO2 31.9 mmHg (35.0-45.0); BG PH 7.512 (7.350-7.450); BG PO2 66.2 mmHg (75.0-100.0); BG SAMPLE SITE RIGHT RADIAL; BG TOTAL HEMOGLOBIN 12.4 g/dL (12.0-18.0); BG VENT MODE ROOM AIR
[2021-12-08] MEDS ORDERED: MAGNESIUM 2 G PREMIX 50 ML IV NR (15:00)
[2021-12-08] MEDS: ATORVASTATIN CALCIUM 40MG TABLET PO SCH (21:59)
[2021-12-09] VITALS (12 sets, daily range): BP systolic 95–121; BP diastolic 63–79
[2021-12-09] MEDS: IPRATROPIUM/ALBUTEROL 0.5-3(2.5)MG/3ML NEB HHN SCH ×5 (00:11→15:13)
[2021-12-09] MEDS: BLOOD SUGAR DIAGNOSTIC STRIP TEST SCH ×2 (07:00→12:30)
[2021-12-09] MEDS: INSULIN LISPRO 100 UNITS/ML SUBCUT SCH ×2 (08:48→12:44)
[2021-12-09] MEDS: ASPIRIN 81MG TABLET PO SCH (08:48)
[2021-12-09] MEDS: DOCUSATE SODIUM 100MG CAPSULE PO SCH (08:48)
[2021-12-09] MEDS: CLOPIDOGREL 75MG TABLET PO SCH (08:48)
[2021-12-09] MEDS: FUROSEMIDE 40MG/4ML VIAL IVP SCH (08:48)
[2021-12-09] MEDS: BACITRACIN 15GM TUBE TOP SCH (12:44)
== END 2021-12-09 15:58 | disposition home health service (06) | DRG 233 ==
LOC: ER 00:06 → 5EST 01:12 → SUPCPDRO 07:19 → CVICU 12-01 13:36 → 5EST 12-06 19:08 → CVICU 12-06 19:13 → 5EST 12-07 17:44
PROVIDERS: ADMIT Internal Medicine; ATTEND Internal Medicine
PROC: 5A09457 Assistance with Respiratory Ventilation, 24-96 Consecutive Hours, Continuous Positive Airway Pressure (ICD-10-PCS; 2021-11-29)
PROC: 4A023N7 Measurement of Cardiac Sampling and Pressure, Left Heart, Percutaneous Approach (ICD-10-PCS; 2021-12-01)
PROC: B211YZZ Fluoroscopy of Multiple Coronary Arteries using Other Contrast (ICD-10-PCS; 2021-12-01)
PROC: 021209W Bypass Coronary Artery, Three Arteries from Aorta with Autologous Venous Tissue, Open Approach (ICD-10-PCS; principal; 2021-12-05)
PROC: 02100Z9 Bypass Coronary Artery, One Artery from Left Internal Mammary, Open Approach (ICD-10-PCS; 2021-12-05)
PROC: 06BQ4ZZ Excision of Left Saphenous Vein, Percutaneous Endoscopic Approach (ICD-10-PCS; 2021-12-05)
PROC: 0W9B30Z Drainage of Left Pleural Cavity with Drainage Device, Percutaneous Approach (ICD-10-PCS; 2021-12-05)
DX: I21.4 Non-ST elevation (NSTEMI) myocardial infarction (principal); J96.01 Acute respiratory failure with hypoxia; I50.23 Acute on chronic systolic (congestive) heart failure; E87.2 Acidosis; N17.9 Acute kidney failure, unspecified; E87.1 Hypo-osmolality and hyponatremia; I42.9 Cardiomyopathy, unspecified; I13.0 Hypertensive heart and chronic kidney disease with heart failure and stage 1 through stage 4 chronic kidney disease, or unspecified chronic kidney disease; E11.65 Type 2 diabetes mellitus with hyperglycemia; I16.0 Hypertensive urgency; J39.2 Other diseases of pharynx; N18.30 Chronic kidney disease, stage 3 unspecified; E78.5 Hyperlipidemia, unspecified; Z20.822 Contact with and (suspected) exposure to COVID-19; E11.22 Type 2 diabetes mellitus with diabetic chronic kidney disease; D64.9 Anemia, unspecified; E87.5 Hyperkalemia; I25.10 Atherosclerotic heart disease of native coronary artery without angina pectoris; N28.1 Cyst of kidney, acquired; Z53.9 Procedure and treatment not carried out, unspecified reason; Z86.73 Personal history of transient ischemic attack (TIA), and cerebral infarction without residual deficits; Z87.891 Personal history of nicotine dependence; Z79.899 Other long term (current) drug therapy; Z79.84 Long term (current) use of oral hypoglycemic drugs
CPT/HCPCS: 36415; 36600; 71045; 76770; 80048; 80053; 80162; 81003; 82043; 82150; 82375; 82550; 82570; 82805; 82962; 83036; 83605; 83735; 83880; 83930; 83935; 84100; 84132; 84145; 84300; 84484; 85025; 85347; 86850; 86900; 86920; 87426; 93005; 93306; 93458; 93880; 93970; 94640; 94660; 97110; 97116; 97163; 97166; 97530; 97535; 99285; C1769; C1887; C1893; J0282; J0690; J1100; J1200; J1265; J1644; J1815; J1940; J2250; J2270; J2405; J2440; J2710; J2720; J3010; J3475; J3480; J3490; J7050; J7060; J7608; P9016; P9047; Q9957; Q9967